=== PATIENT | female | born 2000 | race Caucasian/White ===

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

== ENCOUNTER → 2019-02-09 | Outpatient (CLI) | payer OTHER ==
[~2019-02-09] MED LIST changes: +Motrin,Rufen800 MG PO
== END | disposition home or self-care (01) ==
LOC: LAB 12:23
DX: Z32.01 Encounter for pregnancy test, result positive (principal)

== ENCOUNTER 2022-09-27 10:41 | Emergency (ER) | payer MEDICAID ==
[~2022-09-27] VITALS: Ht 157.4 cm; Wt 59.0 kg
== END 2022-09-27 12:54 | disposition home or self-care (01) ==
LOC: ED 10:41
DX: S90.31XA Contusion of right foot, initial encounter (principal); Z88.0 Allergy status to penicillin; Z88.8 Allergy status to other drugs, medicaments and biological substances; Z87.891 Personal history of nicotine dependence; W20.8XXA Other cause of strike by thrown, projected or falling object, initial encounter; Y93.89 Activity, other specified; Y92.89 Other specified places as the place of occurrence of the external cause; Y99.8 Other external cause status